=== PATIENT | female | born 1955 | race Caucasian/White ===

== ENCOUNTER 2019-06-13 08:32 | Inpatient (IN) ==
[2019-06-13] MEDS: 0.9 % Sodium Chloride 1,000 ML IVC SCH (09:20)
[2019-06-13] MEDS ORDERED: *HR* Midazolam HCl 2 MG/2 ML VIAL ONE (09:37)
[2019-06-13] MEDS ORDERED: Iopamidol 125 ML INFUS..BTL ONE (09:38)
[2019-06-13] MEDS ORDERED: Heparin 1,000 UNITS/500 mL 500 ML ONE (09:38)
[2019-06-13] MEDS ORDERED: Nitroglycerin 1,000 MCG/10 ML VIAL IV ONE (09:38)
[2019-06-13] MEDS ORDERED: *HR* FentaNYL (PF) 100 MCG/2 ML VIAL ONE (09:38)
[2019-06-13] MEDS ORDERED: 0.9 % Sodium Chloride 1,000 ML ONE ×2 (09:38→10:58)
[2019-06-13] MEDS ORDERED: *HR* Heparin 10,000 UNIT/10 ML VIAL ONE (09:38)
[2019-06-13] MEDS ORDERED: Tirofiban 12.5 MG/250ML 12.5 MG/250 ML BAG ONE (11:02)
--- NOTE | 2019-06-13 12:20 | History & Physical Report ---
Date of Encounter: 06/13/19 Time of Encounter: 12:20 24 Hour HP Update - Instructions Instructions: If the History and Physical is less than 30 days old and was completed prior to A.M. admission and or procedure and has NOT been updated on calendar day of procedure please complete this update prior to performing procedure. - Update Patient reports changes in Medical Condition: No Changes in examination, assessment, or condition: No Changes in Medication: No Preop tests/diagnostics Reviewed: Yes Surgery Remains Indicated: Yes Consent for Planned Operative Procedure(s) Verified: Yes
--- NOTE | 2019-06-13 12:20 | Pre-Sedation Evaluation ---
Pre-sedation evaluation - Pre-sedation checklist Date of procedure: 06/13/19 Procedure: [facility] Recent Vitals: Last Vital Signs Temp 98.4 F 06/13/19 09:06 Pulse 57 06/13/19 09:06 Resp 20 06/13/19 09:06 BP 146/82 06/13/19 09:06 Pulse Ox 98 06/13/19 09:06 H&P (including ROS) documented in medical record: Yes Previous reaction to sedatives/anesthetics: No Dietary Status: NPO after Midnight Dentition: No loose teeth or bridges Cardiac Registry (Cardio Only) - Functional Capacity Functional Capacity: >=4 METS with symptoms - Clincal Frailty Scale Clinical Frailty Scale: Vulnerable
--- NOTE | 2019-06-13 12:21 | Event Note ---
Date of Encounter: 06/13/19 Time of Encounter: 12:20 - Cardiology Event Note 64 YOF with hx of multiple CRF's including CAD with patent stents in the proximal RCA and LAD. Last EF 60% 02/2019. Patient presents due to ongoing SCHMIDT, dizziness and lightheadedness. PCI of the RPDA performed. Prior to start of the LHC prior to sedation HR noted to intermittently drop into mid 20's. This carried out through procedure and once the RPDA stent was placed patient continued to have episodes of asystole. This seems to be an underlying culprit. Dr. Haris Gage was kind to see patient in consult. A TVP was placed meanwhile.
[2019-06-13] MEDS ORDERED: Tirofiban 12.5 MG/250ML 12.5 MG/250 ML BAG IVC SCH (12:30)
--- NOTE | 2019-06-13 15:00 | Invasive Diagnostic Lab Proc ---
Name: Lu Stephen Date of Study: 06/13/2019 Date: 1955 Ht: 61.0in Medical Record#: [id number] Age: 64 Wt: 135.00lb Gender: Female BSA: 1.6 Order #: [id number] BMI: 25.51 Physicians Procedure Physician: Laureen Nolasco MD Referring MD: Referring MD: Staff Name Position Time In [facility] RT (R) Monitor 10:26 AM Bernadine Gomes RT (R) Scrub 10:26 AM Nicole Wang RT (R) Scrub 10:26 AM Jorden Del Rosario RN Casting Plug Assembler 10:27 AM Procedures Performed Procedure L HRT ARTERY/VENTRICLE ANGIO CARDIOPULMONARY RESUSCITATION INS/RPL TEMP PM LEAD/CATH;SNGL PRQ CARD BM STENT W/ANGIO 1 VSL Pre-Procedure Checklist Informed consent is complete signed and on chart. H&P is on chart. ID band is on and ID verified with patient. Patient NPO for procedure The procedure was described for the patient and questions were answered. Blood Pressure: 146/82 ECG is on chart. Rhythm: Sinus Bradycardia Plan of Care Patient will tolerate the procedure without complications. Adequate level of comfort will be maintained. Hemodynamics will remain stable Patient will recover from procedure without complications. Respiratory function will be maintained. Cardiac rhythm will remain stable. Patient temperature will be maintained. Patient and/or family have verbalized understanding of the procedure. Patient Education Chief Complaint/Reason for Test: Cardiac Cath Developmental Category: Adult (18-64 years) Developmentally Appropriate for Age: Yes Learning Barriers: None Education Needs: Procedure Education Method: Verbal Information Taught: Cardiac Cath Educational Evaluation: Able to repeat information Intravenous Access Time IV Size Location DC'd Fluid/Drip Rate Units RN 09:17 AM 22g 1" Patent On Arrival Rt Antecubital 0.9NaCl 50 ml/hr Nicole Lorenzana RT (R) Allergies Penicillins Latex, Natural Rubber Penicillin propoxyphene acetaminophen Latex Vital Signs Time BP (mmHg) HR (bpm) O2 Sat. RR (bpm) LOC 09:18 AM 146 / 82 57 98 % 20 5 = Fully awake and oriented or at pre-proc level 10:27 AM / % 5 = Fully awake and oriented or at pre-proc level 10:27 AM / % 4 = Oriented but drowsy 10:42 AM / % 4 = Oriented but drowsy 10:57 AM / % 4 = Oriented but drowsy 11:12 AM / % 4 = Oriented but drowsy 11:28 AM / % 4 = Oriented but drowsy 10:31 AM 117 / 81 61 100 % 6 10:36 AM 112 / 67 57 100 % 18 10:41 AM 116 / 58 49 100 % 15 10:46 AM 113 / 64 39 100 % 30 10:51 AM 86 / 50 48 100 % 19 10:56 AM 92 / 53 57 99 % 16 11:01 AM 98 / 61 61 100 % 14 11:06 AM 111 / 56 59 100 % 19 11:11 AM 129 / 68 61 100 % 13 11:16 AM 138 / 70 62 100 % 17 11:21 AM 154 / 72 62 100 % 12 11:26 AM 122 / 65 37 100 % 14 11:31 AM 114 / 72 64 100 % 22 11:36 AM 132 / 88 42 99 % 15 11:41 AM 122 / 73 62 99 % 13 11:46 AM 116 / 70 54 99 % 18 11:51 AM 119 / 74 79 100 % 20 11:56 AM 124 / 70 55 98 % 17 12:02 PM 139 / 72 57 99 % 18 12:25 PM 133 / 102 60 96 % 14 5 = Fully awake and oriented or at pre-proc level 12:36 PM 116 / 68 65 96 % 16 5 = Fully awake and oriented or at pre-proc level 12:45 PM 116 / 68 50 96 % 16 5 = Fully awake and oriented or at pre-proc level 01:00 PM 119 / 80 54 96 % 16 5 = Fully awake and oriented or at pre-proc level 01:15 PM 127 / 97 65 97 % 16 5 = Fully awake and oriented or at pre-proc level 01:30 PM 122 / 105 58 98 % 16 5 = Fully awake and oriented or at pre-proc level 02:00 PM 127 / 114 58 99 % 14 4 = Oriented but drowsy 02:15 PM 108 / 69 72 97 % 14 5 = Fully awake and oriented or at pre-proc level 02:30 PM 125 / 77 60 98 % 14 5 = Fully awake and oriented or at pre-proc level 02:45 PM 125 / 77 51 91 % 16 5 = Fully awake and oriented or at pre-proc level Procedural Medications Time Medication Dose Units Method Given By 10:27 AM Oxygen 2 L/min nasal cannula Jorden Del Rosario RN 10:30 AM Versed 1 mg Intravenous Jorden Del Rosario RN 10:30 AM Fentanyl 50 mcg Intravenous Jorden Del Rosario RN 10:42 AM Lidocaine 2% 1 ml Subcutaneous Laureen Nolasco MD 10:46 AM Heparin 4000 units Nitroglycerin 200 mcg Verapamil 2.5 mg Intraarterial Laureen Nolasco MD 10:47 AM Versed 0.5 mg Intravenous Jorden Del Rosario RN 10:47 AM Fentanyl 25 mcg Intravenous Jorden Del Rosario RN 11:04 AM Heparin 3000 units Intravenous Jorden Del Rosario RN 11:04 AM Aggrastat Bolus: 10 ml Intravenous Jorden Del Rosario RN 11:04 AM Aggrastat 12.5mg/250ml 10.5 ml/hr Intravenous Jorden Del Rosario RN 11:21 AM Nitroglycerin 200 mcg Intracoronary Laureen Nolasco MD 11:30 AM Nitroglycerin 100 mcg Intracoronary Laureen Nolasco MD 11:43 AM Lidocaine 2% 10 ml Subcutaneous Laureen Nolasco MD 11:55 AM ml 11:56 AM Plavix 600 mg Orally Jorden Del Rosario RN ASA Classification: CLASS II- Mild systemic disease (i.e. well-controlled diabetes, hypertension, asthma, cigarette smoking) Mina Score Preprocedure Postprocedure Activity 2- Moves 4 extremities sustained head lift Activity Circulation 2- SBP +/= 20 points of pre-anesthetic level Circulation Consciousness 2- Awake and alert oriented x 3 Consciousness O2 Saturation 2- Able to maintain O2 satruation of 92% on room air O2 Saturation Respiratory 2- Able to deep breathe and cough well Respiratory Total Score 10 Total Score Contrast Agent: Isovue Diagnostic Contrast: 127 ml Total Contrast: 127 ml Fluoro Dose: 60 mGy Procedure Log Time Note Enter By 09:19 AM Risk for fall? yes medications [email or web address] 09:19 AM Evidence of mental, physical, or emotional abuse? No tsoummers 09:19 AM Does patient have suicidal ideations? No tsoummers 10:26 AM Pt arrived to medical lab technologist 2 at 10:26 [facility] 10:26 AM Physician arrived 10:26 [facility] 10:26 AM Mynor completed [facility] 10:26 AM To, Cinthia RT (R) Position: Monitor Time in: 10: [facility] 10: AM Bernadine Gomes RT (R) Position: Scrub Time in: : [facility] 10: AM Nicole Wang RT (R) Position: Scrub Time in: : [facility] 10: AM Jorden Del Rosario RN Position: Casting Plug Assembler Time in: : [facility] 10: AM Time: : Oxygen on at 2 L/min per nasal cannula by Jorden Del Rosario RN [facility] 10: AM Time: :LOC: 5 = Fully awake and oriented or at pre-proc level [facility] 10: AM Time: : Patient comfortable and pain free: Yes [facility] 10: AM Procedure start 10: [facility] 10:30 AM CathStat 10:30 AM Vitals capture started with the following parameters, Patient=Adult, Interval=5 min, Initial Ublejryx=980 mmHg, Deflation Rate=3 mmHg, Cuff placed on Right Arm 10:30 AM Recorded ECG: HR=60 Condition=Condition 1 10:30 AM Time: 10:30 Versed 1 mg Intravenous Given by Jorden Del Rosario RN [facility] 10:30 AM Time: 10:30 Fentanyl 50 mcg Intravenous Given by Jorden Del Rosario RN [facility] 10:31 AM HR=61 bpm, OPWC=158/81 mmhg, FeU9=764.0 %, Resp=6 B/min 10:32 AM Hair removed from procedure site in holding area using clippers. Right wrist and Right groin prepped with Chloraprep by Jorden Del Rosario RN, then patient was draped. Skin intact. [facility] 10:34 AM Recorded ECG: HR=45 Condition=Condition 1 10:35 AM Pressure channel 1 zeroed. 10:36 AM HR=57 bpm, AMBF=929/67 mmhg, DwJ2=636.0 %, Resp=18 B/min 10:36 AM Pressure channel 1 zero failed. 10:36 AM Pressure channel 1 zero failed. 10:36 AM Pressure channel 1 zero failed. 10:36 AM Pressure channel 1 zero failed. 10:36 AM Pressure channel 1 zeroed. 10:39 AM ASA Class CLASS II- Mild systemic disease (i.e. well-controlled diabetes, hypertension, asthma, cigarette smoking) [facility] 10:40 AM Time out was performed according to hospital policy. Conscious sedation and anesthesia was achieved (see medication log with in this report above) [facility] 10:41 AM HR=49 bpm, WNCU=127/58 mmhg, PjP6=218.0 %, Resp=15 B/min 10:42 AM Time: 10:27LOC: 4 = Oriented but drowsy [facility]:42 AM Time: 10:27 Patient comfortable and pain free: Yes :43 AM Time: 10:42 1 ml Lidocaine 2% to right radial Subcutaneous Given by Laureen Nolasco MD [facility]:46 AM HR=39 bpm, YYGW=783/64 mmhg, ZjI1=677.0 %, Resp=30 B/min 10:46 AM Access obtained by percutaneous puncture. 5/6Fr 10cm Terumo Glidesheath sheath placed in right Radial artery. [id number] [facility] :46 AM Time: 10:46 Patient given 4,000 units Heparin, 200 mcg Nitroglycerin, and 2.5 mg Verapamil Intraarterial by Laureen Nolasco MD. This is given to reduce risk of vessel spasm and thrombosis. [facility] 10:47 AM Time: 10:47 Versed .5 mg Intravenous Given by Jorden Del Rosario RN [facility] 10:47 AM Time: 10:47 Fentanyl 25 mcg Intravenous Given by Jorden Del Rosario RN [facility] 10:47 AM 0.035 260cm Navilyst 3mmJ wire [id number] [facility] 10:49 AM 5Fr TIG catheter inserted over the wire DNC [facility] 10:51 AM HR=48 bpm, NIBP=86/50 mmhg, CxV6=417.0 %, Resp=19 B/min 10:51 AM Recorded Pressure: Ao, HR=38, Condition=Condition 1 (Aorta) Ao 67/35/49 10:52 AM LCA angiography performed in multiple views. [facility] 10:53 AM Recorded Pressure: Ao, HR=54, Condition=Condition 1 (Aorta) Ao 87/52/68 10:56 AM HR=57 bpm, NIBP=92/53 mmhg, SpO2=99.0 %, Resp=16 B/min 10:57 AM Catheter removed [facility] :57 AM 5Fr FR 4 catheter inserted over the wire DNC [facility] 10:57 AM Time: 10:42 Patient comfortable and pain free: Yes [facility] 10:57 AM Time: 10:42LOC: 4 = Oriented but drowsy [facility] 10:59 AM Recorded Pressure: Ao, HR=41, Condition=Condition 1 (Aorta) Ao 81/45/61 10:59 AM RCA angiography performed in multiple views. [facility] 11:00 AM Recorded Pressure: Ao, HR=59, Condition=Condition 1 (Aorta) Ao 84/52/68 11:01 AM Catheter removed [facility] 11:01 AM HR=61 bpm, NIBP=98/61 mmhg, XzA2=294.0 %, Resp=14 B/min 11:02 AM Coronary Dominance: right [facility] 11:02 AM Lesion found in Right PDA. Pre Stenosis: 80 Pre AMAYA Flow: 3: Complete and Brisk Flow/Perfusion [facility] 11:02 AM Right Coronary, Right Posterior Descending Arteries with Right Posterolateral and Acute Marginal branches with 80 % stenosis. If graft is supplying this area, 0 % stenosis [facility] 11:03 AM Inflation device was opened. [facility] 11:04 AM Time: 11:04 Heparin 3000 units Intravenous Given by Jorden Del Rosario RN [facility] 11:04 AM Time: 11:04 Aggrastat Bolus: 10 ml Intravenous Given by Jorden Del Rosario RN [employer] [facility] 11:05 AM Time: 11:04 Aggrastat 12.5mg/250ml 10.5 ml/hr Intravenous Given by Jorden Del Rosario RN [employer] [facility] 11:05 AM .014 [employer] [place] 190cm guide wire across target lesion- successful. reused? No [facility] 11:05 AM 6Fr JR 4 Runway guide catheter was used to cannulate the PCI vessel successfully. reused? No [facility] 11:06 AM Recorded Pressure: Ao, HR=60, Condition=Condition 1 (Aorta) Ao 115/56/81 11:06 AM HR=59 bpm, HNAA=519/56 mmhg, LvO0=851.0 %, Resp=19 B/min 11:09 AM 2.0 mm x 12 mm Emerge Monorail balloon across target lesion- successful. reused? No [email or web address] 11:10 AM Balloon inflated @ 6 yadi for 6 seconds [facility] 11:10 AM Balloon inflated @ 8 yadi for 15 seconds [facility] 11:11 AM Balloon catheter removed intact. [facility] 11:11 AM Recorded Pressure: Ao, HR=58, Condition=Condition 1 (Aorta) Ao 130/54/86 11:11 AM HR=61 bpm, XQVB=138/68 mmhg, FiY4=019.0 %, Resp=13 B/min 11:12 AM 2.25mm x 12mm Synergy drug-eluting stent across target lesion- successful Lot #[id number] [facility] 11:12 AM Time: 10:57LOC: 4 = Oriented but drowsy [facility] 11:12 AM Time: 10:57 Patient comfortable and pain free: No [facility] 11:13 AM Stent deployed @ 9 yadi for 6 seconds [facility] 11:14 AM Stent balloon reinflated @ 8 yadi for 4 seconds [facility] 11:15 AM Stent delivery system removed intact. [facility] 11:15 AM 2.25 mm x 12mm NC Emerge balloon across target lesion- successful. reused? No [facility] 11:16 AM HR=62 bpm, NCPU=454/70 mmhg, RsE9=346.0 %, Resp=17 B/min 11:19 AM Balloon inflated @ 9 yadi for 5 seconds [facility] 11:20 AM Balloon catheter removed intact. [facility] 11:20 AM 2.25 mm x 8mm NC Emerge balloon across target lesion- successful. reused? No [facility] 11:21 AM HR=62 bpm, HTUL=125/72 mmhg, DhK3=046.0 %, Resp=12 B/min 11: AM Time: 11: Nitroglycerin 200 mcg Intracoronary Given by Laureen Nolasco MD [facility] 11:22 AM Balloon inflated @ 6 yadi for 5 seconds [facility] 11:23 AM Balloon inflated @ 6 yadi for 5 seconds [facility] 11:25 AM Balloon catheter removed intact. [facility] 11:25 AM Recorded Pressure: Ao, HR=64, Condition=Condition 1 (Aorta) Ao 126/57/85 11:25 AM 2.25 mm x 6 mm Trek Rx balloon across target lesion- successful. reused? No [facility] 11:26 AM HR=37 bpm, QFIL=225/65 mmhg, GiU3=546.0 %, Resp=14 B/min 11:27 AM Balloon inflated @ 8 yadi for 7 seconds [facility] 11: AM Time: 11:12 Patient comfortable and pain free: Yes [facility] : AM Time: 11:12LOC: 4 = Oriented but drowsy [facility] 11:30 AM Balloon catheter removed intact. [facility] 11:30 AM Time: 11:30 Nitroglycerin 100 mcg Intracoronary Given by Laureen Nolasco MD [facility] 11:31 AM HR=64 bpm, GRJX=010/72 mmhg, EtM7=950.0 %, Resp=22 B/min 11:33 AM Recorded Pressure: Ao, HR=61, Condition=Condition 1 (Aorta) Ao 132/61/90 11:34 AM 2.0 mm x 20 mm Emerge Monorail balloon across target lesion- successful. reused? No [facility] 11:36 AM HR=42 bpm, KBAB=395/88 mmhg, SpO2=99.0 %, Resp=15 B/min 11:36 AM Balloon catheter removed intact. [facility] 11:38 AM Patient asystole. CPR iniated Dr. Nolasco. Patient spontaneously arousable after approximately 10-15 seconds. NSR at this time. [facility] 11:41 AM Preparing to insert temp pacer. [facility] 11:41 AM HR=62 bpm, YWPF=385/73 mmhg, SpO2=99.0 %, Resp=13 B/min 11:43 AM Time: 11:43 10 ml Lidocaine 2% to right groin Subcutaneous Given by Laureen Nolasco MD [facility] 11:43 AM Time: 11:28 Patient comfortable and pain free: Yes [facility] :43 AM Time: :LOC: 4 = Oriented but drowsy [facility] 11:43 AM Micro-Introducer Kit utilized for sheath placement [facility] 11:45 AM NIBP STAT measurement started. 11:45 AM Access obtained by percutaneous puncture. 6Fr 11cm fast cath sheath placed in right Femoral vein. [id number] [facility] 11:46 AM HR=54 bpm, VCBK=569/70 mmhg, SpO2=99.0 %, Resp=18 B/min 11:46 AM PstProc:Bard Bipolar Pacing Catheter Temp pacer inserted into right femoral vein [facility] 11:51 AM HR=79 bpm, ZVRC=986/74 mmhg, XgM0=175.0 %, Resp=20 B/min 11:51 AM PstProc: Temp pacer on. [facility] 11:52 AM PstProc: Temp pacer turned on, rate 50 ppm, mA 5, sensitivity 0.5 [facility] 11:55 AM PstProc: Pacer is inserted at 60 cm [facility] 11:55 AM PstProc: Sheath(s) sutured in due to Temporary Pacer. [facility] 11:56 AM Time: 11:56 Plavix 600 mg Orally Given by Jorden Del Rosario RN [facility] 11:56 AM HR=55 bpm, WSNS=036/70 mmhg, SpO2=98.0 %, Resp=17 B/min 11:56 AM Procedure completed at 11:56 06/13/2019 [facility] 11:56 AM Did you address AMAYA flow and Dominance? YesCoronary Dominance: right [facility] 11:59 AM Sign out completed: Radiation Dose 658.66 mGy, 59.8 Gy/cm2 Fluoro Time: 31 Isovue 370 - 200ml contrast 127 ml given by Laureen Nolasco MD. Complications: None. The patient was discharged out of the phlebotomist lab assistant in stable condition. Sedation minutes 86. Cardiac Rehab Consult needed: Yes. Confirmed administered medications: Yes [facility] 12:00 PM Isovue 370 - 125ml,2 Bottle(s) used. [facility] 12:00 PM Arterial sheath pulled, Vasc Band closure device used and was Successful S/N. [facility] 12:00 PM Venous sheath in R groin left in place to be pulled on floor/holding area [facility] 12:01 PM Estimated Blood Loss: minimal [facility] 12:01 PM Post ECG Sinus Bradycardia [facility] 12:01 PM Post Blood Pressure 124/50 [facility] 12:01 PM Information taught Cardiac Cath, PCI, Temporary pacemaker, and Vasc Band [facility] 12:01 PM Education needs Procedure, Plan of Care, and Responsibilities of Patient in Care [facility] 12:01 PM Learning barriers :None [facility] 12:01 PM Education Methods Verbal [facility] 12:01 PM Education evaluation Able to repeat information [facility] 12:02 PM Plavix, Effient or Brilinta given Yes [facility] 12:02 PM HR=57 bpm, FHMQ=726/72 mmhg, SpO2=99.0 %, Resp=18 B/min 12:03 PM Lesion found in Proximal Circumflex. Pre Stenosis: 25 Pre AMAYA Flow: [facility] 12:03 PM Circumflex, Obtuse Marginal, Left Posterior Descending, and Left Posterolateral Coronary Arteries with 25 % stenosis. If graft is supplying this area, 0 % stenosis [facility] 12:04 PM 11 ml air in Vasc Band. [facility] 12:04 PM Opsite applied to R groin venous access. [facility] 12:08 PM Report given to Lacy RT Pt taken to Holding room Room #1. 12:08 [facility] 12:08 PM Delay to floor Bed availability [facility] 12:08 PM Patient out of room: 12:08 [facility] 12:08 PM Family placed in consult room. [facility] 12:38 PM Family at bedside speaking with Dr. Nolasco. tsites 01:51 PM Report called to Miguel Marie RN. Patient resting quietly. [email or web address] 02:31 PM Site status Hematoma - Rt Wrist as reported by Eliane Bull RN at 14:15 <3 cm [email or web address] 02:31 PM Opsite applied [facility] 02:31 PM Site status No bleeding/ No Hematoma - Rt Wrist as reported by Eliane Bull RN at 14:31 [facility] 02:31 PM manual pressure held by Eliane Bull x 10 minutes. No hematoma at this time. [email or web address] 02:40 PM Santiago Duggan CNP to see patient. mprater 02:50 PM Patient transfered to ICU mprater Complications Complication None Hemodynamics Pressures Site Systolic/A Wave Diastolic/V Wave Mean AO 67 35 49 AO 87 52 68 AO 81 45 61 AO 84 52 68 AO 115 56 81 AO 130 54 86 AO 126 57 85 AO 132 61 90 Post Procedure Information Blood Pressure: 124/50 mmHg Rhythm: Sinus Bradycardia Post procedural instructions were given Site Checks Time Location Status Staff Sheath In? Note 12:35 PM Rt Wrist No bleeding/ No Hematoma Sirisha Bull RN Radial band in place 12:45 PM Rt Wrist No bleeding/ No Hematoma Eliane Bull RN 12:45 PM Rt Groin No bleeding/ No Hematoma Eliane Bull RN Temporary Pacemaker intact and secure 01:00 PM Rt Wrist No bleeding/ No Hematoma Eliane Bull RN 2cc air deflated 01:15 PM Rt Wrist No bleeding/ No Hematoma Kristine Diaz RN 2cc air deflated 01:15 PM Rt Groin No bleeding/ No Hematoma Kristine Diaz RN temporary pacemaker intact 01:30 PM Rt Wrist No bleeding/ No Hematoma Kristine Diaz RN 2 cc air deflated 01:30 PM Rt Groin No bleeding/ No Hematoma Kristine Diaz RN temporary pacer intact 01:45 PM Rt Groin No bleeding/ No Hematoma Sirisha Bull RN temporary pacer intact 01:45 PM Rt Wrist No bleeding/ No Hematoma Sirisha Bull RN 2 ml of air removed 02:00 PM Rt Wrist No bleeding/ No Hematoma Kristine Diaz RN 2cc air deflated 02:15 PM Rt Wrist Hematoma Eliane Bull RN vasc band removed 02:30 PM Rt Wrist No bleeding/ No Hematoma Eliane Bull RN 02:15 PM Rt Wrist Hematoma Eliane Bull RN <3 cm 02:31 PM Rt Wrist No bleeding/ No Hematoma Eliane Bull RN 02:45 PM Rt Wrist No bleeding/ No Hematoma Kristine Diaz RN 02:45 PM Rt Groin No bleeding/ No Hematoma Kristine Diaz RN Temporary Pacemaker secure Pulses Time Site Pre-Procedure Post-Procedure Note 06/13/2019 9:18:00 AM Bilateral DP & PT 2+ 06/13/2019 9:18:00 AM Bilateral radial 2+ 06/13/2019 12:35:00 PM Bilateral DP 2+ 06/13/2019 2:45:00 PM Bilateral DP 2+ Updated by Eliane Bull RN on 06/13/2019 2:51:44 PM Eliane Bull RN electronically signed on 06/13/2019 2:52:27 PM with status of Final
--- NOTE | 2019-06-13 15:39 | Electrophysiology Consult Note ---
<Santiago Duggan R - Last Filed: 06/13/19 15:46> Date of Encounter: 06/13/19 Time of Encounter: 13:30 Assessment and Plan (1) Bradycardia Status: Acute Per Cardiology: Asystole during PCI attempt PDA pre-Physician today. Currently has temperature pacer set at 50. Currently sinus rhythm in the 60s. Takes Toprol-XL 12.5 g by mouth daily at home, recommend hold for now. No past history of syncope. Discussed and reviewed with Dr. Haris Gage, recommendations to keep temp pacer set at 50 overnight and assuming no pacing needed discontinue tomorrow. Currently no clinical indication for permanent pacemaker. Recommend event monitor at discharge. Discussed with primary service. Discussion w patient/family: The assessment and plan as outlined above was discussed with the patient and/or family members who expressed understanding and agreement. All questions were answered. Thank you for involving us in the care of your patient. Please call with any questions. History of Present Illness Consult date: 06/13/19 Requesting physician: Laureen Nolasco Consult reason: Asystole Chief complaint: CP, s/p LHC, asystole History of present illness: Ms. Stephen is a 64 year old female with relevant past mental history of HTN, HLD, CAD, COPD, nicotine abuse. Electrophysiology consult for asystole during PCI. Patient reports presented for outpatient catheterization due to ongoing exertional chest pain symptoms. Denies any past history of syncope or falls. Reports were Holter monitor many years ago. Denies any history of pacemaker or ICD. Denies any hypothyroidism. Currently denies any chest pain or shortness of breath. Past Med Surg Social Fam HX - Past Medical History Attestation: Yes The following information was validated with the patient. Source: patient, obtained from family Medical history: asthma, COPD, coronary artery disease, hyperlipidemia, hypertension, valvular heart disease Additional medical history: Angioplasty. pulmonary stenosis Psychiatric history: depression - Past Surgical History Surgical History: angioplasty/stent, hysterectomy, orthopedic, other (Right shoulder and rib repair) Additional surgical history: Brain aneurysm surgery November 2016 - Social History Smoking Status: Current every day smoker Smokeless Tobacco Status: No Alcohol use: none Drug use: none Medications and Allergies Cyclobenzaprine HCl 10 mg PO TID PRN 05/27/15 [History] Aspirin Enteric Coated [Aspirin EC] 81 mg PO DAILY #30 tablet. 05/28/15 [Rx] Tiotropium [Spiriva] 18 mcg IH 0700 10/29/15 [History] Fluticasone Propionate Nasal [Flonase] 100 mcg NS DAILY 04/03/19 [History] Isosorbide MONOnitrate [Isosorbide Mononitrate ER] 30 mg PO DAILY 04/03/19 [History] Losartan/Hydrochlorothiazide [Hyzaar 100-25 Tablet] 1 each PO DAILY 04/03/19 [History] Montelukast [Singulair] 10 mg PO DAILY 04/03/19 [History] Nitroglycerin [Nitrostat] 0.4 mg SL PRN PRN 04/03/19 [History] Oxybutynin Chloride [Ditropan XL] 5 mg PO DAILY 04/03/19 [History] Albuterol Sulfate [Proventil Inhaler] 2 puff PO Q4H PRN 06/14/19 [History] Clopidogrel [Plavix] 75 mg PO DAILY 06/14/19 [History] OxyCODONE/APAP 5/325 [Percocet 5/325 MG] 1 tab PO BID PRN 06/14/19 [History] Rosuvastatin Calcium 40 mg PO QPM 06/14/19 [History] Trazodone HCl 50 - 100 mg PO HS PRN 06/14/19 [History] Allergy/AdvReac Type Severity Reaction Status Date / Time Latex, Natural Rubber Allergy Hives Verified 02/11/17 11:54 propoxyphene Allergy Hives Verified 02/11/17 11:54 All Systems Review: The remainder of the systems were reviewed and are negative - Cardiovascular Cardiovascular: as per HPI, chest pain with exertion Physical Examination Vital Signs, Last 4 Hours Temp Pulse Pulse Resp BP Pulse Ox 06/13/19 15:00 97.4 F L 58 58 16 96/85 98 General: Conversant, No Apparent Distress HEENT: Atraumatic, Normocephaly, Mucus Membranes Moist Neck: No JVD, Normal carotid pulses Cardiac: Reg Rate and Rhythm, Normal S1 and S2, No Murmur Lungs: Normal Breath Sounds, No Wheeze, Rales, Rhonchi Neuro: Alert and responsive, No focal deficits noted Abdomen: Soft, Non-Tender Skin: No rashes noted on visualized skin Musculoskeletal: No Chest Wall Tenderness Extremities: No Clubbing, No Cyanosis, No Edema, Normal Pulses Results Laboratory Tests 10/24/18 06/03/19 06/03/19 10:11 10:48 10:48 Hgb Hct INR 1.0 Creatinine 0.87 Est GFR (Non-Af Amer) > 60 AST 21 ALT 13 06/03/19 10:48 Hgb 15.2 Hct 45.5 H INR Creatinine Est GFR (Non-Af Amer) AST ALT Active Medications Aspirin (Aspirin) 81 mg PO DAILY [facility] Stop: 12/14/19 09:01 Clopidogrel Bisulfate (Plavix) 75 mg PO DAILY [facility] Stop: 12/14/19 09:01 Sodium Chloride (0.9 % Sodium Chloride) 1,000 mls @ 50 mls/hr IVC .Q20H [facility] Stop: 12/13/19 09:01 Last Admin: 06/13/19 09:20 Dose: 50 mls/hr Documented by: Tirofiban/Sodium Chloride (Aggrastat 12.5 Mg/250 Ml) 12.5 mg in 250 mls @ 11.022 mls/hr IVC .[id number] [facility] Stop: 06/13/19 20:31 - Imaging and Cardiology Cardiac cath: other Consult Discharge Plan - Plan Additional Instructions: RISK FACTORS: STOP SMOKING: If you smoke, STOP. Smoking or tobacco use significantly increases your risk of heart disease because nicotine causes the arteries to narrow or constrict. It also causes fats to stick to the artery. Your chances of having a heart attack are greatly increased if you continue to smoke. For more information, call the education line for smoking cessation 1-668-LIXELAQ EAT A LOW FAT/CHOLESTEROL/SODIUM DIET: This diet may help reduce your chances of having a heart attack. LIFTING: Avoid lifting anything more than 10 pounds for 5-7 days Prior to straining, laughing, sneezing and/or coughing, apply manual pressure directly over insertion site. ACTIVITY: You may walk or climb stairs as tolerated You can resume sexual activity as tolerated In general, you are encouraged to engage in a minimum of 30 minutes or more of moderate intensity physical activity, such as brisk walking, daily or at least 3-4 times weekly BATHING Do not submerge the site into water (bath tub, hot tub, swimming pool) for 1 week. This can be a source for infection into the blood stream. You may shower after 24 hours SITE CARE: After 24 hours, you may remove the dressing and leave the site open to air. Keep the site clean and dry. Clean gently and pat dry. You can expect bruising and tenderness that gradually resolve within a week or two. Return to work as instructed per your physician Resume driving as instructed per physician Keep all scheduled follow up appointments Resume medications as instructed IMPORTANT: If prescribed a Platelet Aggregation Inhibitor such as, Plavix, Brilinta or Effient: Duration of therapy is minimum one year These medications are often used in combination with Aspirin in prevention of future heart attacks Never discontinue unless consult with your Manager Creative Services STROKE (CVA) Risk factors for a stroke are: Age, cigarette smoking, diabetes, excessive alcohol consumption, family history, high blood pressure, overweight, physical inactivity, prior stroke, heart attack, diagnosis of carotid artery stenosis or other artery disease. Warning signs: Sudden numbness or weakness of the face, arm or leg; especially on one side of the body, sudden confusion, trouble speaking or understanding, sudden trouble seeing in one or both eyes, sudden trouble walking, dizziness, loss of balance or coordination, sudden severe headache with no cause. Call 911 or go to the Emergency Room. CONGESTIVE HEART FAILURE: If you have been diagnosed with Congestive Heart Failure (CHF) and your symptoms return, make an appointment with your physician Weigh yourself daily. Notify your physician if you have a weight gain of two or more pounds in one day or five or more pounds in one week. If you experience any difficulty breathing, please call 911 BLEEDING: Although the risk of bleeding is minimal, it can happen. If you have any bleeding from the site, apply firm pressure above the puncture site for 10-15 m inutes. If the bleeding does not stop, continue manual pressure and call 911 CARDIAC REHABILITATION: If you have had a heart attack or cardiac stents placed, please ask your electrician deck if Cardiac Rehabilitation is right for you. Cardiac Rehabilitation is recommended, beneficial to your health and can improve the following: strengthen your heart, improve ejection fraction, weight reduction, decrease cholesterol levels, lower blood pressure, lower blood sugar, improve stamina and enhance self-image. If you have any questions please call [facility] at [phone]. Contact your physician if: You develop a fever greater than 101 degrees Fahrenheit Your site becomes reddened or has any drainage You have an increase in pain or burning at the site or if a large knot forms at the site. If you experience chest pain, shortness of breath, dizziness, or extreme tiredness, stop the activity and rest. Please notify your physicians office if you experience any of these symptoms and they are not relieved by rest please call 911!RISK FACTORS: STOP SMOKING: If you smoke, STOP. Smoking or tobacco use significantly increases your risk of heart disease because nicotine causes the arteries to narrow or constrict. It also causes fats to stick to the artery. Your chances of having a heart attack are greatly increased if you continue to smoke. For more information, call the education line for smoking cessation 6-597-EKKYFAP EAT A LOW FAT/CHOLESTEROL/SODIUM DIET: This diet may help reduce your chances of having a heart attack. LIFTING: With affected extremity: Avoid bending, pushing off and lifting more than 2 pounds for 24 hours The following 48 hours, avoid lifting anything more than 5 pounds Avoid strenuous activity or repetitive motions ACTIVITY: You may walk or climb stairs as tolerated You can resume sexual activity as tolerated In general, you are encouraged to engage in a minimum of 30 minutes or more of moderate intensity physical activity, such as brisk walking, daily or at least 3-4 times weekly BATHING Do not submerge the site into water (bath tub, hot tub, swimming pool, dishes) for 1 week. This can be a source for infection into the blood stream. You may shower after 24 hours SITE CARE: After 24 hours, you may remove the dressing and leave the site open to air. Keep the site clean and dry. Clean gently and pat dry. You can expect bruising and tenderness that gradually resolve within a week or two. Return to work as instructed per your physician Resume driving as instructed per physician Keep all scheduled follow up appointments Resume medications as instructed IMPORTANT: If prescribed a Platelet Aggregation Inhibitor such as, Plavix, Brilinta or Effient: Duration of therapy is minimum one year These medications are often used in combination with Aspirin in prevention of future heart attacks Never discontinue unless consult with your Manager Creative Services STROKE (CVA) Risk factors for a stroke are: Age, cigarette smoking, diabetes, excessive alcohol consumption, family history, high blood pressure, overweight, physical inactivity, prior stroke, heart attack, diagnosis of carotid artery stenosis or other artery disease. Warning signs: Sudden numbness or weakness of the face, arm or leg; especially on one side of the body, sudden confusion, trouble speaking or understanding, sudden trouble seeing in one or both eyes, sudden trouble walking, dizziness, loss of balance or coordination, sudden severe headache with no cause. Call 911 or go to the Emergency Room. CONGESTIVE HEART FAILURE: If you have been diagnosed with Congestive Heart Failure (CHF) and your symptoms return, make an appointment with your physician Weigh yourself daily. Notify your physician if you have a weight gain of two or more pounds in one day or five or more pounds in one week. If you experience any difficulty breathing, please call 911 BLEEDING: Although the risk of bleeding is minimal, it can happen. If you have any bleeding from the site, apply firm pressure above the puncture site for 10-15 minutes. If the bleeding does not stop, continue manual pressure and call 911 CARDIAC REHABILITATION: If you have had a heart attack or cardiac stents placed, please ask your electrician deck if Cardiac Rehabilitation is right for you. Cardiac Rehabilitation is recommended, beneficial to your health and can improve the following: strengthen your heart, improve ejection fraction, weight reduction, decrease cholesterol levels, lower blood pressure, lower blood sugar, improve stamina and enhance self-image. If you have any questions please call [facility] at [phone]. Contact [facility] ( ) if: You develop a fever greater than 101 degrees Fahrenheit Your site becomes reddened or has any drainage You have an increase in pain or burning at the site or if a large knot forms at the site. If you experience chest pain, shortness of breath, dizziness, or extreme tiredness, stop the activity and rest. Please notify [facility] office if you experience any of these symptoms and they are not relieved by rest please call 911! Referrals: Mesfin Schuler MD [Primary Care Provider] - <Haris Gage - Last Filed: 06/18/19 14:03> Date of Encounter: 06/18/19 - Attending Attestation I have personally performed a face to face evaluation on this patient. I have reviewed and agree with the care plan. History and Exam by me shows: Sinus pause in setting of right coronary intervention. Would monitor on temp pacer overnight, if does not need pacing it can be removed. Assessment and Plan Discussion w patient/family: The assessment and plan as outlined above was discussed with the patient and/or family members who expressed understanding and agreement. All questions were answered. Thank you for involving us in the care of your patient. Please call with any questions. History of Present Illness History of present illness: Ms. Stephen is a 64 year old female All Systems Review: The remainder of the systems were reviewed and are negative Results 06/14/19 03:53 06/14/19 03:53
[2019-06-14 04:19] LABS: Hematocrit 42.7 % (35.3-44.9); Hemoglobin 14.2 g/dL (11.5-15.4)
[2019-06-14 04:38] LABS: BUN/Creatinine Ratio 15 (6-26); Blood Urea Nitrogen 10 mg/dL (8-23); eGFR For African Americans > 60 (> 60); eGFR For Non-African Americans > 60 (> 60)
[2019-06-14] MEDS: Aspirin 81 MG TAB.CHEW PO SCH (08:52)
[2019-06-14] MEDS ORDERED: Nitroglycerin 0.4 MG TAB.SUBL SL PRN (12:39)
[2019-06-14] MEDS ORDERED: *HR* OxyCODONE/APAP 5/325 TABLET PO PRN (12:39)
--- NOTE | 2019-06-14 12:48 | Cardiology Progress Note ---
Date of Encounter: 06/14/19 Time of Encounter: 10:00 Assessment and Plan (1) CAD (coronary artery disease) Current Visit: No Status: Acute Per cardiology: -Admitted after [facility] yesterday with PCI to PDA. -Denies chest pain. -Right radial access site without ecchymosis or hematoma. -On asa, statin, plavix. Not on BB due to bradycardia. Continue dual anti- platelet therapy uninterrupted for at least one year. -Continue current medical therapy. Qualifiers: Coronary Disease-Associated Artery/Lesion type: [place] artery [place] vs. transplanted heart: [place] heart Associated angina: without angina Qualified Code(s): I25.10 - Atherosclerotic heart disease of [place] coronary artery without angina pectoris (2) Bradycardia Current Visit: No Status: Acute Per Cardiology: -Asystole during PCI attempt PDA per . -Currently has temperature pacer set at 50. -Currently sinus rhythm in the 60s, however does have HR slowing and need for pacemaker. -Takes Toprol-XL 12.5 g by mouth daily at home, recommend hold for now. -No past history of syncope. -Discussed and reviewed with , at patient's bedside, will decrease pacemaker rate to 30BPM. Monitor HR closely. If significant bradycardia noted, ok to increase pacemaker rate to 50. -If patient is not needing pacemaker overnight, plan for discontinuation in am. -Will continue to closely monitor. Discussion w patient/family: The assessment and plan as outlined above was discussed with the patient and/or family members who expressed understanding and agreement. All questions were answered. Thank you for involving us in the care of your patient. Please call with any questions. Discussed and reviewed with . Subjective Principal diagnosis: CAD, bradycardia Interval history: Patient states she feels well today. Denies dizziness, lightheadedness. Denies chest pain. Objective Vital Signs, Last 4 Hours Temp Pulse Pulse Resp BP Pulse Ox 06/14/19 12:00 70 52 20 118/85 96 06/14/19 11:43 97.4 F L 06/14/19 11:00 65 20 141/72 96 06/14/19 10:00 48 73 20 133/78 96 06/14/19 09:00 57 20 157/67 96 General: Conversant, No Apparent Distress HEENT: Atraumatic, Normocephaly, Mucus Membranes Moist Neck: No JVD, Normal carotid pulses Cardiac: Reg Rate and Rhythm, Normal S1 and S2, No Murmur Lungs: Normal Breath Sounds, No Wheeze, Rales, Rhonchi Neuro: Alert and responsive, No focal deficits noted Abdomen: Soft, Non-Tender Skin: No rashes noted on visualized skin, Other (Right radial access site without ecchymosis or hematoma. Right groin venous sheath in place with temporary pacemaker. ) Musculoskeletal: No Chest Wall Tenderness Extremities: No Clubbing, No Cyanosis, No Edema, Normal Pulses Results 06/14/19 03:53 06/14/19 03:53 Lab Results Active Medications Aspirin (Aspirin) 81 mg PO DAILY [facility] Stop: 12/14/19 09:01 Last Admin: 06/14/19 08:52 Dose: 81 mg Documented by: Clopidogrel Bisulfate (Plavix) 75 mg PO DAILY [facility] Stop: 12/14/19 09:01 Last Admin: 06/14/19 08:52 Dose: 75 mg Documented by: Cyclobenzaprine HCl (Flexeril) 10 mg PO TID PRN PRN Reason: Muscle Spasm Stop: 12/14/19 12:40 Fluticasone Propionate (Flonase) 50 mcg NS DAILY [facility]; Protocol Stop: 12/15/19 09:01 Sodium Chloride (0.9 % Sodium Chloride) 1,000 mls @ 50 mls/hr IVC .Q20H [facility] Stop: 12/13/19 09:01 Last Infusion: 06/14/19 08:52 Dose: Infused Documented by: Isosorbide Mononitrate (Imdur) 30 mg PO DAILY [facility] Stop: 12/14/19 12:40 Montelukast Sodium (Singulair) 10 mg PO DAILY [facility] Stop: 12/15/19 09:01 Nitroglycerin (Nitroglycerin) 0.4 mg SL PRN PRN PRN Reason: Chest Pain Stop: 12/14/19 12:40 Non-Formulary Medication (Albuterol Sulfate [Proair Respiclick]) 90 mcg IH Q4HR PRN PRN Reason: Shortness Of Breath Non-Formulary Medication (Amlodipine Besylate [Norvasc]) 10 mg PO DAILY [facility] Stop: 12/15/19 12:40 Non-Formulary Medication (Losartan/Hydrochlorothiazide [Hyzaar 100-25 Tablet]) 1 each PO DAILY [facility] Stop: 12/14/19 12:40 Non-Formulary Medication (Oxybutynin Chloride [Ditropan Xl]) 5 mg PO DAILY [facility] Stop: 12/15/19 09:01 Oxycodone/Acetaminophen (Percocet 5/325) 1 each PO Q6H PRN PRN Reason: Pain Stop: 12/14/19 12:40 Rosuvastatin Calcium (Crestor) 40 mg PO HS [facility] Stop: 12/14/19 21:01 Tiotropium [place] (Spiriva) 18 mcg IH 0700 [facility] Stop: 12/15/19 07:01 Laboratory Tests 06/14/19 06/14/19 03:53 03:53 Hgb 14.2 Creatinine 0.66 - Imaging and Cardiology Echo: report reviewed Cardiac cath: report reviewed Consult Discharge Plan - Plan Referrals: Mesfin Schuler MD [Primary Care Provider] -
[2019-06-14] MEDS: Losartan/HCTZ 50-12.5 TABLET PO SCH (13:45)
[2019-06-14] MEDS: Isosorbide MONOnitrate (24 HR) 30 MG TAB.ER.24H PO SCH (13:45)
[2019-06-14] MEDS: *HR* Heparin 5,000 UNIT/ML VIAL SQ SCH (17:37)
[2019-06-14] MEDS: 0.9 % Sodium Chloride 1,000 ML IVC SCH (21:10)
[2019-06-15] MEDS: 0.9 % Sodium Chloride 1,000 ML IVC SCH (00:02)
[2019-06-15] MEDS: *HR* Heparin 5,000 UNIT/ML VIAL SQ SCH ×2 (06:13→18:28)
[2019-06-15] MEDS ORDERED: amLODIPine 5 MG TABLET PO SCH (09:00)
[2019-06-15] MEDS ORDERED: Fluticasone Propionate Nasal 50 MCG/SPRAY BOTTLE NS SCH (09:00)
[2019-06-15] MEDS: Losartan/HCTZ 50-12.5 TABLET PO SCH (09:43)
[2019-06-15] MEDS: Isosorbide MONOnitrate (24 HR) 30 MG TAB.ER.24H PO SCH (09:44)
[2019-06-15] MEDS: Aspirin 81 MG TAB.CHEW PO SCH (09:44)
[2019-06-15] MEDS ORDERED: Tiotropium 18 MCG inhalation IH SCH (10:00)
--- NOTE | 2019-06-15 11:13 | Cardiology Progress Note ---
Date of Encounter: 06/15/19 Time of Encounter: 09:00 Assessment and Plan (1) CAD (coronary artery disease) Current Visit: No Status: Acute Per cardiology: -Admitted after [facility] Sunday with PCI to PDA. -Denies chest pain. -Right radial access site without ecchymosis or hematoma. -On asa, statin, plavix. Not on BB due to bradycardia. Continue dual anti- platelet therapy uninterrupted for at least one year. -Continue current medical therapy. Qualifiers: Coronary Disease-Associated Artery/Lesion type: [place] artery [place] vs. transplanted heart: [place] heart Associated angina: without angina Qualified Code(s): I25.10 - Atherosclerotic heart disease of [place] coronary artery without angina pectoris (2) Bradycardia Current Visit: No Status: Acute Per Cardiology: -Asystole during PCI attempt PDA per . -Currently has temperature pacer set at 30. Very rare pacemaker intervention needed. -Currently sinus rhythm in the 70s. -Takes Toprol-XL 12.5 g by mouth daily at home, recommend hold for now. -No past history of syncope. -Discussed and reviewed with , at patient's bedside, will discontinue pacemaker. Pacemaker wire pulled per . Venous sheath pulled per and manual pressure held. -Will continue to closely monitor, if no events overnight, plan for discharge in am. Will transfer out of ICU today. Discussion w patient/family: The assessment and plan as outlined above was discussed with the patient who expressed understanding and agreement. All questions were answered. Thank you for involving us in the care of your patient. Please call with any questions. Discussed and reviewed with . Subjective Principal diagnosis: CAD, bradycardia Interval history: Patient states she feels well today. Denies dizziness, lightheadedness. Denies chest pain. Objective Vital Signs, Last 4 Hours Temp Pulse Pulse Resp BP Pulse Ox 06/15/19 09:00 66 20 111/90 95 06/15/19 08:00 78 73 20 101/90 97 06/15/19 07:49 98.1 F General: Conversant, No Apparent Distress HEENT: Atraumatic, Normocephaly, Mucus Membranes Moist Neck: No JVD, Normal carotid pulses Cardiac: Reg Rate and Rhythm, Normal S1 and S2, No Murmur Lungs: Normal Breath Sounds, No Wheeze, Rales, Rhonchi Neuro: Alert and responsive, No focal deficits noted Abdomen: Soft, Non-Tender Skin: No rashes noted on visualized skin, Other (Right radial dressing clean, dry, intact. Right femoral venous sheath intact. Temporary pacemaker intact. ) Musculoskeletal: No Chest Wall Tenderness Extremities: No Clubbing, No Cyanosis, No Edema, Normal Pulses Results 06/14/19 03:53 06/14/19 03:53 Active Medications Albuterol Sulfate (Proventil Inhaler) 1 puff IH Q4HR PRN PRN Reason: Shortness Of Breath Amlodipine Besylate (Norvasc) 10 mg PO DAILY [facility] Stop: 12/15/19 09:01 Last Admin: 06/15/19 09:44 Dose: 10 mg Documented by: Aspirin (Aspirin) 81 mg PO DAILY [facility] Stop: 12/14/19 09:01 Last Admin: 06/15/19 09:44 Dose: 81 mg Documented by: Clopidogrel Bisulfate (Plavix) 75 mg PO DAILY [facility] Stop: 12/14/19 09:01 Last Admin: 06/15/19 09:43 Dose: 75 mg Documented by: Cyclobenzaprine HCl (Flexeril) 10 mg PO TID PRN PRN Reason: Muscle Spasm Stop: 12/14/19 12:40 Last Admin: 06/14/19 19:58 Dose: 10 mg Documented by: Fluticasone Propionate (Flonase) 50 mcg NS DAILY [facility]; Protocol Stop: 12/15/19 09:01 Last Admin: 06/15/19 08:55 Dose: 50 mcg Documented by: HCTZ/Losartan Potassium (Hyzaar 50/12.5) 2 each PO DAILY [facility] Stop: 12/14/19 12:40 Last Admin: 06/15/19 09:43 Dose: 2 each Documented by: Heparin Sodium (Porcine) (Heparin) 5,000 unit SQ Q12HCO [facility]; Protocol Stop: 12/14/19 18:01 Last Admin: 06/15/19 06:13 Dose: 5,000 unit Documented by: Sodium Chloride (0.9 % Sodium Chloride) 1,000 mls @ 50 mls/hr IVC .Q20H [facility] Stop: 12/13/19 09:01 Last Admin: 06/15/19 00:02 Dose: Not Given Documented by: Isosorbide Mononitrate (Imdur) 30 mg PO DAILY [facility] Stop: 12/14/19 12:40 Last Admin: 06/15/19 09:44 Dose: 30 mg Documented by: Montelukast Sodium (Singulair) 10 mg PO DAILY [facility] Stop: 12/15/19 09:01 Last Admin: 06/15/19 09:44 Dose: 10 mg Documented by: Nitroglycerin (Nitroglycerin) 0.4 mg SL Q5MPRN PRN PRN Reason: Chest Pain Stop: 12/14/19 12:40 Oxybutynin Chloride (Ditropan) 5 mg PO BID [facility] Stop: 12/14/19 21:01 Last Admin: 06/15/19 09:43 Dose: 5 mg Documented by: Oxycodone/Acetaminophen (Percocet 5/325) 1 each PO Q6H PRN PRN Reason: Pain Stop: 12/14/19 12:40 Last Admin: 06/14/19 19:58 Dose: 1 each Documented by: Rosuvastatin Calcium (Crestor) 40 mg PO HS [facility] Stop: 12/14/19 21:01 Last Admin: 06/14/19 19:59 Dose: 40 mg Documented by: Tiotropium [place] (Spiriva) 18 mcg IH DAILYR [facility] Stop: 12/15/19 10:01 Last Admin: 06/15/19 07:57 Dose: 18 mcg Documented by: - Imaging and Cardiology Chest Xray: report reviewed Echo: report reviewed - EKG Interpretation EKG results cardiology: other Consult Discharge Plan - Plan Referrals: Mesfin Schuler MD [Primary Care Provider] -
[2019-06-15] MEDS ORDERED: Nitroglycerin 0.4 MG TAB.SUBL SL PRN (11:43)
[2019-06-15] MEDS ORDERED: *HR* OxyCODONE/APAP 5/325 TABLET PO PRN (11:43)
[2019-06-15] MEDS ORDERED: 0.9 % Sodium Chloride 1,000 ML IVC SCH (11:43)
[2019-06-16] MEDS: *HR* Heparin 5,000 UNIT/ML VIAL SQ SCH (06:18)
[2019-06-16] MEDS ORDERED: Isosorbide MONOnitrate (24 HR) 30 MG TAB.ER.24H PO SCH (09:00)
[2019-06-16] MEDS ORDERED: amLODIPine 5 MG TABLET PO SCH (09:00)
[2019-06-16] MEDS ORDERED: Fluticasone Propionate Nasal 50 MCG/SPRAY BOTTLE NS SCH (09:00)
[2019-06-16] MEDS ORDERED: Losartan/HCTZ 50-12.5 TABLET PO SCH (09:00)
[2019-06-16] MEDS ORDERED: Aspirin 81 MG TAB.CHEW PO SCH (09:00)
[2019-06-16] MEDS ORDERED: Tiotropium 18 MCG inhalation IH SCH (10:00)
[2019-06-16 10:02] VITALS: BP 145/128
--- NOTE | 2019-06-16 10:14 | Discharge Summary ---
- NOTES TO OUTPATIENT PROVIDER Notes to Outpatient Provider: Admitted after PCI, had bradycardia and required temporary pacemaker. Date of Encounter: 06/16/19 Time of Encounter: 09:30 - Discharge Diagnosis (1) CAD (coronary artery disease) Priority: Primary Status: Acute Comments: Admitted after PCI Qualifiers: Coronary Disease-Associated Artery/Lesion type: [place] artery [place] vs. transplanted heart: [place] heart Associated angina: without angina Qualified Code(s): I25.10 - Atherosclerotic heart disease of [place] coronary artery without angina pectoris (2) Bradycardia Priority: Secondary Status: Acute Comments: Bradycardia noted, required temporary pacemaker. - Hospital Course Hospital course: Ms. Stephen is a 64 year old female who underwent LHC on Sunday with PCI to PDA. During procedure, patient was noted to be bradycardic and pulse was unable to be detected. Patient underwent a few seconds of CPR and temporary pacemaker was placed. BB was stopped and pacemaker was discontinued yesterday. Patient is on asa, plavix. statin. BB was discontinued due to bradycardia. Educated on dual anti-platelet therapy uninterrupted for at least one year, states understanding. Patient's HR is currently stable. HR at bedside 70s. Nocturnal bradycardia noted. BP hypotensive and norvasc was discontinued. BP currently stable. Educated to monitor BP at home and call cardiology with BP updates. Right radial arterial access site with mild ecchymosis, no hematoma. Right groin venous access site without ecchymosis or hematoma. Access site management education reviewed with patient, states understanding. Patient was also evaluated by EP this admission and recommended for 2 week monitor to be placed at discharge, ordered. Patient is being prepped for discharge home after monitor placed, in stable condition. All questions answered. Patient will follow with [facility], follow up set. - Time Spent with Patient Total time spent providing and/or coordinating discharge services: Less than 30 minutes - Discharge Medications Prescriptions: Continued Cyclobenzaprine HCl 10 mg PO TID PRN PRN Reason: Muscle Spasm Aspirin Enteric Coated [Aspirin EC] 81 mg PO DAILY #30 tablet. Monteluedouardst [Singulair] 10 mg PO DAILY Oxybutynin Chloride [Ditropan XL] 5 mg PO DAILY Nitroglycerin [Nitrostat] 0.4 mg SL PRN PRN PRN Reason: Chest Pain Isosorbide MONOnitrate [Isosorbide Mononitrate ER] 30 mg PO DAILY Losartan/Hydrochlorothiazide [Hyzaar 100-25 Tablet] 1 each PO DAILY Fluticasone Propionate Nasal [Flonase] 100 mcg NS DAILY Albuterol Sulfate [Proventil Inhaler] 2 puff PO Q4H PRN PRN Reason: Shortness Of Breath Clopidogrel [Plavix] 75 mg PO DAILY OxyCODONE/APAP 5/325 [Percocet 5/325 MG] 1 tab PO BID PRN PRN Reason: Pain Rosuvastatin Calcium 40 mg PO QPM Trazodone HCl 50 - 100 mg PO HS PRN PRN Reason: Sleep Tiotropium [Spiriva] 18 mcg IH 0700 Discontinued Metoprolol Succinate [Toprol Xl] 12.5 mg PO DAILY Amlodipine Besylate 10 mg PO DAILY Home Medications: Cyclobenzaprine HCl 10 mg PO TID PRN 05/27/15 [History] Aspirin Enteric Coated [Aspirin EC] 81 mg PO DAILY #30 tablet. 05/28/15 [Rx] Tiotropium [Spiriva] 18 mcg IH 0700 10/29/15 [History] Fluticasone Propionate Nasal [Flonase] 100 mcg NS DAILY 04/03/19 [History] Isosorbide MONOnitrate [Isosorbide Mononitrate ER] 30 mg PO DAILY 04/03/19 [History] Losartan/Hydrochlorothiazide [Hyzaar 100-25 Tablet] 1 each PO DAILY 04/03/19 [History] Montelukast [Singulair] 10 mg PO DAILY 04/03/19 [History] Nitroglycerin [Nitrostat] 0.4 mg SL PRN PRN 04/03/19 [History] Oxybutynin Chloride [Ditropan XL] 5 mg PO DAILY 04/03/19 [History] Albuterol Sulfate [Proventil Inhaler] 2 puff PO Q4H PRN 06/14/19 [History] Clopidogrel [Plavix] 75 mg PO DAILY 06/14/19 [History] OxyCODONE/APAP 5/325 [Percocet 5/325 MG] 1 tab PO BID PRN 06/14/19 [History] Rosuvastatin Calcium 40 mg PO QPM 06/14/19 [History] Trazodone HCl 50 - 100 mg PO HS PRN 06/14/19 [History] Allergies/Adverse Reactions: Allergy/AdvReac Type Severity Reaction Status Date / Time Latex, Natural Rubber Allergy Hives Verified 02/11/17 11:54 propoxyphene Allergy Hives Verified 02/11/17 11:54 Date of admission: 06/13/19 15:05 Primary care physician: Mesfin Schuler MD Consults: 06/13/19 12:18 Consult to Cardiac Rehabilitation-Phase1 [CONS] Routine Comment: Reason for Consult: post op PCI Call Completed: Yes 06/13/19 15:37 Consult to Electrophysiology (EP) [CONS] Routine Consulting Provider: Electrophysiology Zeenat Reason for Consult: bradycardia Call Completed: Yes Discharging clinician: Siri Ramires Anticipated date of discharge: 06/16/19 Physical Examination Vital Signs, Last 4 Hours Temp Pulse Resp BP Pulse Ox 06/16/19 10:00 58 16 145/128 96 06/16/19 08:20 16 96 06/16/19 08:00 66 16 114/71 96 06/16/19 07:13 97.9 F General: Conversant, No Apparent Distress HEENT: Atraumatic, Normocephaly, Mucus Membranes Moist Neck: No JVD, Normal carotid pulses Cardiac: Reg Rate and Rhythm, Normal S1 and S2, No Murmur Lungs: Normal Breath Sounds, No Wheeze, Rales, Rhonchi Neuro: Alert and responsive, No focal deficits noted Abdomen: Soft, Non-Tender Skin: No rashes noted on visualized skin, Other (Right radial access site with mild ecchymosis, no hematoma. Right groin access site without hematoma or ecchymosis. ) Musculoskeletal: No Chest Wall Tenderness Extremities: No Clubbing, No Cyanosis, No Edema, Normal Pulses - Patient Status Disposition: Home, Self-Care Condition: Good Functional capacity at discharge: independent ambulation Overall status at discharge: patient is progressing back to baseline - Discharge Instructions Follow Up With: Mesfin Schuler MD [Primary Care Provider] - Additional Instructions: RISK FACTORS: STOP SMOKING: If you smoke, STOP. Smoking or tobacco use significantly increases your risk of heart disease because nicotine causes the arteries to marquis row or constrict. It also causes fats to stick to the artery. Your chances of having a heart attack are greatly increased if you continue to smoke. For more information, call the education line for smoking cessation 8-775-SJWEOSI EAT A LOW FAT/CHOLESTEROL/SODIUM DIET: This diet may help reduce your chances of having a heart attack. LIFTING: Avoid lifting anything more than 10 pounds for 5-7 days Prior to straining, laughing, sneezing and/or coughing, apply manual pressure directly over insertion site. ACTIVITY: You may walk or climb stairs as tolerated You can resume sexual activity as tolerated In general, you are encouraged to engage in a minimum of 30 minutes or more of moderate intensity physical activity, such as brisk walking, daily or at least 3-4 times weekly BATHING Do not submerge the site into water (bath tub, hot tub, swimming pool) for 1 week. This can be a source for infection into the blood stream. You may shower after 24 hours SITE CARE: After 24 hours, you may remove the dressing and leave the site open to air. Keep the site clean and dry. Clean gently and pat dry. You can expect bruising and tenderness that gradually resolve within a week or two. Return to work as instructed per your physician Resume driving as instructed per physician Keep all scheduled follow up appointments Resume medications as instructed IMPORTANT: If prescribed a Platelet Aggregation Inhibitor such as, Plavix, Brilinta or Effient: Duration of therapy is minimum one year These medications are often used in combination with Aspirin in prevention of future heart attacks Never discontinue unless consult with your [employer]eller STROKE (CVA) Risk factors for a stroke are: Age, cigarette smoking, diabetes, excessive alcohol consumption, family history, high blood pressure, overweight, physical inactivity, prior stroke, heart attack, diagnosis of carotid artery stenosis or other artery disease. Warning signs: Sudden numbness or weakness of the face, arm or leg; especially on one side of the body, sudden confusion, trouble speaking or understanding, sudden trouble seeing in one or both eyes, sudden trouble walking, dizziness, loss of balance or coordination, sudden severe headache with no cause. Call 911 or go to the Emergency Room. CONGESTIVE HEART FAILURE: If you have been diagnosed with Congestive Heart Failure (CHF) and your symptoms return, make an appointment with your physician Weigh yourself daily. Notify your physician if you have a weight gain of two or more pounds in one day or five or more pounds in one week. If you experience any difficulty breathing, please call 911 BLEEDING: Although the risk of bleeding is minimal, it can happen. If you have any bleeding from the site, apply firm pressure above the puncture site for 10-15 minutes. If the bleeding does not stop, continue manual pressure and call 911 CARDIAC REHABILITATION: If you have had a heart attack or cardiac stents placed, please ask your school year nanny if Cardiac Rehabilitation is right for you. Cardiac Rehabilitation is recommended, beneficial to your health and can improve the following: strengthen your heart, improve ejection fraction, weight reduction, decrease cholesterol levels, lower blood pressure, lower blood sugar, improve stamina and enhance self-image. If you have any questions please call [facility] at [phone]. Contact your physician if: You develop a fever greater than 101 degrees Fahrenheit Your site becomes reddened or has any drainage You have an increase in pain or burning at the site or if a large knot forms at the site. If you experience chest pain, shortness of breath, dizziness, or extreme tired ness, stop the activity and rest. Please notify your physicians office if you experience any of these symptoms and they are not relieved by rest please call 911!RISK FACTORS: STOP SMOKING: If you smoke, STOP. Smoking or tobacco use significantly increases your risk of heart disease because nicotine causes the arteries to narrow or constrict. It also causes fats to stick to the artery. Your chances of having a heart attack are greatly increased if you continue to smoke. For more information, call the education line for smoking cessation 4-510-YJVTMCL EAT A LOW FAT/CHOLESTEROL/SODIUM DIET: This diet may help reduce your chances of having a heart attack. LIFTING: With affected extremity: Avoid bending, pushing off and lifting more than 2 pounds for 24 hours The following 48 hours, avoid lifting anything more than 5 pounds Avoid strenuous activity or repetitive motions ACTIVITY: You may walk or climb stairs as tolerated You can resume sexual activity as tolerated In general, you are encouraged to engage in a minimum of 30 minutes or more of moderate intensity physical activity, such as brisk walking, daily or at least 3-4 times weekly BATHING Do not submerge the site into water (bath tub, hot tub, swimming pool, dishes) for 1 week. This can be a source for infection into the blood stream. You may shower after 24 hours SITE CARE: After 24 hours, you may remove the dressing and leave the site open to air. Keep the site clean and dry. Clean gently and pat dry. You can expect bruising and tenderness that gradually resolve within a week or two. Return to work as instructed per your physician Resume driving as instructed per physician Keep all scheduled follow up appointments Resume medications as instructed IMPORTANT: If prescribed a Platelet Aggregation Inhibitor such as, Plavix, Brilinta or Effient: Duration of therapy is minimum one year These medications are often used in combination with Aspirin in prevention of future heart attacks Never discontinue unless consult with your [employer] STROKE (CVA) Risk factors for a stroke are: Age, cigarette smoking, diabetes, excessive alcohol consumption, family history, high blood pressure, overweight, physical inactivity, prior stroke, heart attack, diagnosis of carotid artery stenosis or other artery disease. Warning signs: Sudden numbness or weakness of the face, arm or leg; especially on one side of the body, sudden confusion, trouble speaking or understanding, sudden trouble seeing in one or both eyes, sudden trouble walking, dizziness, loss of balance or coordination, sudden severe headache with no cause. Call 911 or go to the Emergency Room. CONGESTIVE HEART FAILURE: If you have been diagnosed with Congestive Heart Failure (CHF) and your symptoms return, make an appointment with your physician Weigh yourself daily. Notify your physician if you have a weight gain of two or more pounds in one day or five or more pounds in one week. If you experience any difficulty breathing, please call 911 BLEEDING: Although the risk of bleeding is minimal, it can happen. If you have any bleeding from the site, apply firm pressure above the puncture site for 10-15 minutes. If the bleeding does not stop, continue manual pressure and call 911 CARDIAC REHABILITATION: If you have had a heart attack or cardiac stents placed, please ask your school year nanny if Cardiac Rehabilitation is right for you. Cardiac Rehabilitation is recommended, beneficial to your health and can improve the following: strengthen your heart, improve ejection fraction, weight reduction, decrease cholesterol levels, lower blood pressure, lower blood sugar, improve stamina and enhance self-image. If you have any questions please call [facility] at [phone]. Contact [facility] ( ) if: You develop a fever greater than 101 degrees Fahrenheit Your site becomes reddened or has any drainage You have an increase in pain or burning at the site or if a large knot forms at the site. If you experience chest pain, shortness of breath, dizziness, or extreme tiredness, stop the activity and rest. Please notify [facility] office if you experience any of these symptoms and they are not relieved by rest please call 911! - Diet and Activity Activity: increase activity as tolerated (Follow restrictions as above. ) Diet: low fat, low cholesterol, low salt diet
== END 2019-06-16 11:24 | disposition home or self-care (01) | DRG 247 ==
LOC: INVDIALAB 08:32 → ICNU 15:05
PROVIDERS: ADMIT Internal Medicine Cardiovascular Disease; ATTEND Internal Medicine Cardiovascular Disease